=== PATIENT | male | born 1960 | race Caucasian/White ===

== ENCOUNTER 2023-07-11 22:25 | Inpatient (IN) | payer OTHER ==
[2023-07-11] MEDS ORDERED: Furosemide 20 MG (2 mL) VIAL ONE (23:28)
[2023-07-11 23:31] LABS: #Basophils 0.1 thou/uL (0.0-0.2); #Eosinphils 0.4 thou/uL (0.0-0.7); #Monocytes 0.9 thou/uL (0.11-0.59); #Neutrophils 8.9 thou/uL (1.40-6.50); %Basophils 0.6 % (0.0-1.0); %Eosinophils 3.3 % (0.0-10.0); %Lymphocytes 17.4 % (21.0-51.0); %Monocytes 7.2 % (0.0-10.0); %Neutrophils 71.2 % (42.0-75.0); Hematocrit 47.2 % (42.0-52.0); Hemoglobin 15.4 g/dL (14.0-18.0); Mean Corpuscular HGB CONC 32.6 g/dL (32.0-36.0); Mean Corpuscular Volume 101.1 fl (78.0-98.0); Platelet Count 236 10x3/uL (130-400); RBC Distribution Width 14.1 % (11.5-14.5); Red Blood Cell (RBC) Count 4.67 mill/uL (4.70-6.10); White Blood Cell (WBC) Count 12.5 10x3/uL (4.8-10.8)
[2023-07-11 23:57] LABS: Troponin I 0.026 ng/mL (< 0.028)
[2023-07-12 00:01] LABS: ALT (SGPT) 28 U/L (8-55); AST (SGOT) 29 U/L (5-34); Albumin 3.9 g/dL (3.4-4.8); Alkaline Phosphatase 72 U/L (40-110); Anion Gap 12 mmol/L (10-20); BUN (Urea Nitrogen) 16 mg/dL (8.4-25.7); Bilirubin, Total 1.2 mg/dL (0.2-1.2); Calc. Creatinine Clearance 0 mL/min (70-130); Calcium 9.4 mg/dL (7.8-10.44); Carbon Dioxide 23 mmol/L (23-31); Chloride 106 mmol/L (98-107); Estimated GFR 92; Glucose 95 mg/dL (80-115); Lipase 38 U/L (8-78); Magnesium 1.6 mg/dL (1.6-2.6); Potassium 4.4 mmol/L (3.5-5.1); Protein, Total 6.9 g/dL (5.8-8.1); Sodium 137 mmol/L (136-145)
[2023-07-12] MEDS ORDERED: Aspirin 81 mg Enteric Coated Tablet ONE ×2 (01:21→09:21)
[2023-07-12] MEDS ORDERED: Nitroglycerin 2% Ointment 1 INCH/1 GM Packet ONE (01:22)
[2023-07-12] MEDS ORDERED: Furosemide 40 MG (4 mL) VIAL ONE (01:22)
[2023-07-12] MEDS ORDERED: Ondansetron PF 4 MG/2 ML Vial IVP PRN (01:39)
[2023-07-12] MEDS ORDERED: Acetaminophen 325 MG TAB PO PRN (01:39)
[2023-07-12 02:28] LABS: Amphetamine Not Detected (NotDetected); Barbiturates Screen Not Detected (NotDetected); Benzodiazepine Screen Not Detected (NotDetected); Cocaine Metabolite Screen Not Detected (NotDetected); Methadone Not Detected (NotDetected); Methamphetamine Not Detected (NotDetected); Opiate Screen Not Detected (NotDetected); Oxycodone Screen Not Detected (NotDetected); Phencyclidine (PCP) Not Detected (NotDetected); THC/Cannabinoid Screen Not Detected (NotDetected); Tricyclic Screen Not Detected (NotDetected)
[2023-07-12] MEDS: Furosemide 20 MG (2 mL) VIAL SLOW IVP SCH (03:11)
[2023-07-12 04:05] LABS: #Basophils 0.1 thou/uL (0.0-0.2); #Eosinphils 0.3 thou/uL (0.0-0.7); #Monocytes 0.9 thou/uL (0.11-0.59); #Neutrophils 9.5 thou/uL (1.40-6.50); %Basophils 0.6 % (0.0-1.0); %Eosinophils 2.6 % (0.0-10.0); %Lymphocytes 14.6 % (21.0-51.0); %Monocytes 6.7 % (0.0-10.0); %Neutrophils 74.9 % (42.0-75.0); Hematocrit 46.2 % (42.0-52.0); Hemoglobin 15.9 g/dL (14.0-18.0); Mean Corpuscular HGB CONC 34.4 g/dL (32.0-36.0); Mean Corpuscular Hemoglobin 33.4 pg (27.0-31.0); Mean Platelet Volume 10.6 fL (7.4-10.4); Platelet Count 262 10x3/uL (130-400); RBC Distribution Width 13.7 % (11.5-14.5); Red Blood Cell (RBC) Count 4.76 mill/uL (4.70-6.10); White Blood Cell (WBC) Count 12.7 10x3/uL (4.8-10.8)
[2023-07-12 04:06] LABS: Mean Corpuscular Volume 97.1 fl (78.0-98.0)
[2023-07-12 04:28] LABS: Anion Gap 14 mmol/L (10-20); BUN (Urea Nitrogen) 15 mg/dL (8.4-25.7); Calc. Creatinine Clearance 0 mL/min (70-130); Carbon Dioxide 26 mmol/L (23-31); Chloride 102 mmol/L (98-107); Estimated GFR 88; Glucose 114 mg/dL (80-115); Magnesium 1.8 mg/dL (1.6-2.6); Potassium 3.9 mmol/L (3.5-5.1); Sodium 138 mmol/L (136-145)
[2023-07-12] MEDS ORDERED: Carvedilol 6.25 MG TAB ONE ×3 (04:40→17:19)
[2023-07-12] MEDS: Carvedilol 6.25 MG TAB PO SCH ×2 (04:48→09:29)
[2023-07-12 06:26] LABS: Troponin I 0.029 ng/mL (< 0.028)
[2023-07-12] MEDS ORDERED: Magnesium 2 GM/50 ML BAG (IN WATER) ONE (07:22)
[2023-07-12] MEDS ORDERED: Potassium Chloride 20 MEQ TAB ONE (07:22)
[2023-07-12] MEDS ORDERED: HYDROcodone/Acetaminophen 5/325 mg Tablet ONE (07:22)
[2023-07-12] MEDS: HYDROcodone/Acetaminophen 5/325 mg Tablet PO SCH (07:31)
[2023-07-12] MEDS: Potassium Chloride 20 MEQ TAB PO SCH (07:32)
[2023-07-12] MEDS: Magnesium 2 GM/50 ML(in water) 2 GM in Premix 1 BAG IVPB SCH (07:33)
[2023-07-12] MEDS ORDERED: Enoxaparin 40 MG (0.4 mL) SYRINGE ONE (09:21)
[2023-07-12] MEDS: Aspirin 81 mg Enteric Coated Tablet PO SCH (09:29)
[2023-07-12] MEDS: Enoxaparin 40 MG (0.4 mL) SYRINGE SC SCH (09:30)
[2023-07-12] MEDS ORDERED: Furosemide 40 MG (4 mL) VIAL SLOW IVP SCH (14:00)
[2023-07-12] MEDS: Spironolactone 25 MG TAB PO SCH (14:55)
[2023-07-12 19:20] VITALS: BMI 28.8
[2023-07-12] MEDS: Atorvastatin Calcium 40 MG TAB PO SCH (20:02)
[2023-07-12] MEDS: Sacubitril 24MG/Valsartan 26 MG TAB PO SCH (20:02)
[2023-07-13 05:31] LABS: #Basophils 0.1 thou/uL (0.0-0.2); #Eosinphils 0.5 thou/uL (0.0-0.7); %Basophils 0.6 % (0.0-1.0); %Monocytes 9.2 % (0.0-10.0); %Neutrophils 70.9 % (42.0-75.0); Hematocrit 46.8 % (42.0-52.0); Hemoglobin 15.9 g/dL (14.0-18.0); Mean Corpuscular Hemoglobin 33.5 pg (27.0-31.0); Mean Corpuscular Volume 98.5 fl (78.0-98.0); Mean Platelet Volume 10.8 fL (7.4-10.4); Platelet Count 238 10x3/uL (130-400); RBC Distribution Width 13.8 % (11.5-14.5); Red Blood Cell (RBC) Count 4.75 mill/uL (4.70-6.10); White Blood Cell (WBC) Count 11.2 10x3/uL (4.8-10.8)
[2023-07-13 05:49] LABS: Anion Gap 10 mmol/L (10-20); BUN (Urea Nitrogen) 20 mg/dL (8.4-25.7); Calc. Creatinine Clearance 86 mL/min (70-130); Calcium 9.1 mg/dL (7.8-10.44); Carbon Dioxide 28 mmol/L (23-31); Chloride 102 mmol/L (98-107); Estimated GFR 84; Glucose 112 mg/dL (80-115); Magnesium 1.8 mg/dL (1.6-2.6); Potassium 4.1 mmol/L (3.5-5.1); Sodium 136 mmol/L (136-145)
[2023-07-13] MEDS: Spironolactone 25 MG TAB PO SCH (08:06)
[2023-07-13] MEDS: Empagliflozin 10 MG TAB PO SCH (08:07)
[2023-07-13] MEDS: Furosemide 40 MG (4 mL) VIAL SLOW IVP SCH (08:07)
[2023-07-13] MEDS: Clopidogrel Bisulfate 75 MG TAB PO SCH (08:07)
[2023-07-14 05:58] LABS: #Basophils 0.1 thou/uL (0.0-0.2); #Eosinphils 0.3 thou/uL (0.0-0.7); #Monocytes 1.3 thou/uL (0.11-0.59); #Neutrophils 9.4 thou/uL (1.40-6.50); %Basophils 0.7 % (0.0-1.0); %Eosinophils 2.5 % (0.0-10.0); %Lymphocytes 13.2 % (21.0-51.0); %Monocytes 10.3 % (0.0-10.0); %Neutrophils 72.8 % (42.0-75.0); Hematocrit 55.5 % (42.0-52.0); Hemoglobin 18.4 g/dL (14.0-18.0); Mean Corpuscular HGB CONC 33.2 g/dL (32.0-36.0); Mean Corpuscular Hemoglobin 32.6 pg (27.0-31.0); Mean Corpuscular Volume 98.2 fl (78.0-98.0); Mean Platelet Volume 10.5 fL (7.4-10.4); Platelet Count 259 10x3/uL (130-400); RBC Distribution Width 13.6 % (11.5-14.5); Red Blood Cell (RBC) Count 5.65 mill/uL (4.70-6.10); White Blood Cell (WBC) Count 12.9 10x3/uL (4.8-10.8)
[2023-07-14 06:26] LABS: Anion Gap 12 mmol/L (10-20); BUN (Urea Nitrogen) 24 mg/dL (8.4-25.7); Calc. Creatinine Clearance 75 mL/min (70-130); Calcium 9.4 mg/dL (7.8-10.44); Carbon Dioxide 25 mmol/L (23-31); Chloride 103 mmol/L (98-107); Estimated GFR 70; Glucose 99 mg/dL (80-115); Magnesium 1.9 mg/dL (1.6-2.6); Potassium 4.4 mmol/L (3.5-5.1); Sodium 136 mmol/L (136-145)
[2023-07-14] MEDS: Furosemide 40 MG TAB PO SCH (08:01)
[2023-07-14] MEDS: Sacubitril 49 MG/Valsartan 51 MG TABLET PO SCH (08:01)
[2023-07-15] MEDS: FLU VACC QS2023-24(6MOS UP)/PF 60 MCG/0.5 ML SYRINGE IM ONE (11:34)
[2023-07-15] MEDS ORDERED: Gentamicin 80 MG/2 ML VIAL ONE (12:50)
[2023-07-15] MEDS ORDERED: CEFAZOLIN 2 GM VIAL ONE (12:51)
[2023-07-15] MEDS ORDERED: CEFAZOLIN 1 GM VIAL ONE (12:51)
[2023-07-15] MEDS ORDERED: Midazolam HCl 2 mg/2 ml Vial ONE (12:52)
[2023-07-15] MEDS ORDERED: Lidocaine 1% (PF) 30 ML VIAL ONE (12:52)
[2023-07-15] MEDS ORDERED: fentaNYL 50 mcg/mL 1 mL Vial ONE (12:52)
[2023-07-15 16:12] VITALS: BP 126/63; TEMP 97.3
[2023-07-15] MEDS: Cephalexin 250 MG CAP PO SCH (16:15)
== END 2023-07-15 19:20 | disposition home or self-care (01) | DRG 245 ==
LOC: ERS 22:25 → ERHOLD 07-12 01:22 → OBSVTOIN 07-12 01:39 → 2NO 07-12 18:32
PROVIDERS: ADMIT Internal Medicine; ATTEND Family Medicine
PROC: 0JH609Z Insertion of Cardiac Resynchronization Defibrillator Pulse Generator into Chest Subcutaneous Tissue and Fascia, Open Approach (ICD-10-PCS; principal; 2023-07-15)
PROC: 0JPT0PZ Removal of Cardiac Rhythm Related Device from Trunk Subcutaneous Tissue and Fascia, Open Approach (ICD-10-PCS; 2023-07-15)
DX: I11.0 Hypertensive heart disease with heart failure (principal); I49.01 Ventricular fibrillation; I50.23 Acute on chronic systolic (congestive) heart failure; I24.89 Other forms of acute ischemic heart disease; I47.20 Ventricular tachycardia, unspecified; I25.10 Atherosclerotic heart disease of native coronary artery without angina pectoris; I42.9 Cardiomyopathy, unspecified; I07.1 Rheumatic tricuspid insufficiency; Z95.5 Presence of coronary angioplasty implant and graft; Z95.810 Presence of automatic (implantable) cardiac defibrillator; Z87.891 Personal history of nicotine dependence
CPT/HCPCS: 33263; 36415; 71045; 80048; 80053; 80306; 83690; 83735; 83880; 84484; 85025; 93005; 93306; 94760; 96374; 99152; 99153; C1721; J0690; J1580; J1650; J1940; J2001; J2250; J3010; J3475